=== PATIENT | female | born 1990 | race African-American/Black ===

== ENCOUNTER 2017-08-01 12:46 | Emergency (ER) | payer BC, OTHER ==
[2017-08-01 12:56] VITALS: BP 116/71; PULSE 98; TEMP 97.6; BMI 21.9
[2017-08-01] MEDS ORDERED: IBUPROFEN 600 MG TABLET (FP) PO ONE ×2 (13:10→13:27)
[2017-08-01] MEDS ORDERED: ONDANSETRON *ODT* 4 MG TABLET ONE (13:27)
--- NOTE | 2017-08-01 13:50 | PDOC ---
History of Present Illness - General Chief Complaint: Injury Stated Complaint: INJURY Time Seen by Provider: 08/01/17 13:10 History Source: Patient Exam Limitations: No Limitations - History of Present Illness Initial Comments: 08/01/17 13:22 CHIEF COMPLAINT: Ankle pain HISTORY OF PRESENT ILLNESS: This is an otherwise healthy 26 year old female who presents for evaluation of right ankle pain and swelling. She is only able to bear partial weight. She reports that she was wearing very high heels at a club last night and is not sure if she fell. She denies any other injuries or symptoms. REVIEW OF SYSTEMS: GENERAL/CONSTITUTIONAL: No fever or chills. No weakness. No weight change. HEAD, EYES, EARS, NOSE AND THROAT: No change in vision. No ear pain or discharge. No sore throat. MUSCULOSKELETAL: See HPI. SKIN: No rash or easy bruising. NEUROLOGIC: No headache, vertigo, loss of consciousness, or loss of sensation. HEMATOLOGIC/LYMPHATIC: No anemia, easy bleeding, or history of blood clots. ALLERGIC/IMMUNOLOGIC: No hives or skin allergy. No latex allergy. PHYSICAL EXAM: GENERAL: The patient is awake, alert, and fully oriented, in no acute distress. EXTREMITIES: Tenderness and swelling at right lateral malleolus. Unable to bear full weight. DP/PT pulses 2+. Movement and sensation of toes intact. NEUROLOGICAL: Normal speech. CN II-XII grossly intact. PSYCH: Normal mood, normal affect. SKIN: Warm, dry, normal turgor, no rashes or lesions noted. Past History - Past Medical History Allergies/Adverse Reactions: Allergies Allergy/AdvReac Type Severity Reaction Status Date / Time No Known Allergies Allergy Verified 08/01/17 12:56 Home Medications: Ambulatory Orders Ibuprofen [Motrin -] 600 mg PO QID #30 tablet 08/01/17 - Suicide/Smoking/Psychosocial Hx Smoking History: Current every day smoker Have you smoked in the past 12 months: Yes Number of Cigarettes Smoked Daily: 4 Information on smoking cessation initiated: No Hx Alcohol Use: No Drug/Substance Use Hx: No Substance Use Type: Alcohol, Marijuana *Physical Exam - Vital Signs Last Vital Signs Temp Pulse Resp BP Pulse Ox 97.6 F 98 H 18 116/71 100 08/01/17 12:49 08/01/17 12:49 08/01/17 12:49 08/01/17 12:49 08/01/17 12:49 ED Treatment Course - RADIOLOGY Radiology Studies Ordered: Category Date Time Status ANKLE & FOOT-RIGHT* [RAD] Stat Radiology 08/01/17 13:10 Ordered Medical Decision Making - Medical Decision Making 08/01/17 13:50 A/P: 26 year old female with ankle pain and swelling, like fall/injury that patient does not recollect. -Urine -Ankle/foot xray -Ibuprofen 600mg for pain 08/01/17 14:25 Xray reviewed and interpreted by radiology: soft tissue swelling, no acute fracture. Ankle brace/crutches provided. RICE therapy and followup instructions reviewed. *DC/Admit/Observation/Transfer Diagnosis at time of Disposition: Ankle sprain Qualifiers: Encounter type: initial encounter Involved ligament of ankle: other ligament Laterality: right Qualified Code(s): S93.491A - Sprain of other ligament of right ankle, initial encounter - Discharge Dispostion Disposition: HOME Condition at time of disposition: Stable Admit: No - Prescriptions Prescriptions: Ibuprofen [Motrin -] 600 mg PO QID #30 tablet - Referrals Referrals: Prem Quinn MD [Staff Physician] - - Patient Instructions Printed Discharge Instructions: DI for Ankle Sprain Additional Instructions: -Rest and apply ice to the painful area -Take ibuprofen with food as prescribed for pain and swelling -Wear the brace provided and use crutches to avoid weight-bearing -Rest with the foot elevated above the level of your heart -Follow up with orthopedics (contact information enclosed) -Return here for any concerning symptoms - Post Discharge Activity Forms/Work/School Notes: Back to Work
== END 2017-08-01 15:09 | disposition home or self-care (01) ==
LOC: JERFT 12:46
DX: S93.491A Sprain of other ligament of right ankle, initial encounter (principal); W18.39XA Other fall on same level, initial encounter; Y93.89 Activity, other specified; Y92.89 Other specified places as the place of occurrence of the external cause; F17.210 Nicotine dependence, cigarettes, uncomplicated
CPT/HCPCS: 73610-TC-RT; 73630-TC-RT; 84703; 99281-25